=== PATIENT | male | born 1950 | race Two or more races ===

== ENCOUNTER 2019-02-18 08:30 | Inpatient (IN) | payer MEDICARE, MEDICAID ==
[~2019-02-18] VITALS: Ht 157.5 cm; Wt 66.2 kg
[2019-02-18] MEDS ORDERED: METHYLPREDNISOLONE SOD SUCC 125 MG/2 ML VIAL IV STA (08:45)
[2019-02-18] MEDS: ALBUTEROL (0.083%) 2.5MG/3ML NEB HHN SCH ×3 (08:45→09:45)
[2019-02-18] MEDS ORDERED: MAGNESIUM 2 G PREMIX 50 ML IV ONE (08:45)
[2019-02-18] MEDS ORDERED: IPRATROPIUM BROMIDE (0.02%) 0.5MG/2.5ML NEB HHN STA (08:45)
[2019-02-18 09:09] LABS: CHLORIDE 96 mEq/L (98-107)
[2019-02-18 09:10] LABS: BASOPHILS % 0.3 % (0.0-2.0); EOSINOPHILS % 0.4 % (0.0-5.0); HEMATOCRIT. 35.5 % (42.0-52.0); HEMOGLOBIN. 11.5 g/dL (14.0-18.0); LYMPHOCYTES % 8.5 % (20.0-50.0); MEAN CORPUSCULAR HEMOGLOBIN 28.2 pg (28.0-32.0); MEAN CORPUSCULAR VOLUME 87.3 fL (80.0-94.0); MEAN PLATELET VOLUME 7.7 fl (7.4-10.4); MONOCYTES % 9.2 % (2.0-8.0); NEUTROPHILS % 81.6 % (40.0-76.0); PLATELET 464 x1000/uL (130-400); RED BLOOD CELL COUNT 4.07 mill/uL (4.7-6.1); RED CELL DISTRIBUTION WIDTH 16.6 % (11.6-14.6)
[2019-02-18 09:26] LABS: BG BASE EXCESS 1.2 mmol/L (-2.0-2.0); BG BILEVEL POS AIRWAY PRESSURE 15/5; BG CARBOXYHEMOGLOBIN 0.6 % (0.5-1.5); BG DEOXYHEMOGLOBIN 0.5 % (0.0-5.0); BG FRACTION INSPIRED OXYGEN 100; BG HCO3 ACT 27.5 mmol/L (22.0-26.0); BG METHEMOGLOBIN 0.1 % (0.0-1.5); BG OXYGEN SATURATION 99.5 % (92.0-98.5); BG OXYHEMOGLOBIN 98.8 % (94.0-97.0); BG PH 7.349 (7.350-7.450); BG SAMPLE SITE LEFT RADIAL; BG TOTAL HEMOGLOBIN 12.1 g/dL (12.0-18.0); BG VENT MODE MASK - BIPAP; BG VENT RATE 16 set
[2019-02-18 09:59] LABS: CLARITY URINE TURBID (CLEAR); COLOR URINE YELLOW (YELLOW); KETONES URINE NEGATIVE (NEGATIVE); LEUKOCYTE ESTERASE URINE 3+ (NEGATIVE); NITRITE URINE NEGATIVE (NEGATIVE); OCCULT BLOOD URINE 2+ (NEGATIVE); PROTEIN URINE 2+ (NEGATIVE); SPECIFIC GRAVITY URINE 1.017 (1.005-1.030); UROBILINOGEN URINE 0.2 E.U./dL (0.2-1.0)
[2019-02-18] MEDS ORDERED: PIPERACILLIN/TAZ 3.375G PREMIX 50 ML IV ONE (10:15)
[2019-02-18] MEDS ORDERED: SODIUM CHLORIDE 0.9% 1000ML BAG (SEPSIS BOLUS) IV ONE (10:15)
[2019-02-18] MEDS ORDERED: VANCOMYCIN 1 G PREMIX 200 ML IV ONE (10:15)
[2019-02-18] MEDS ORDERED: CLONIDINE 0.1MG TABLET PO PRN (11:45)
[2019-02-18] MEDS ORDERED: IPRATROPIUM/ALBUTEROL 0.5-3(2.5)MG/3ML NEB INH SCH (11:45)
[2019-02-18] MEDS ORDERED: ONDANSETRON HCL 4MG/2ML INJ IV PRN (11:45)
[2019-02-18 14:10] VITALS: BP 112/67
[2019-02-18] MEDS ORDERED: ALBUMIN HUMAN 25GM/500ML (5%) IV PRN (14:30)
[2019-02-18 16:22] VITALS: BP 122/64
[2019-02-18] MEDS: DEXT 5%/0.45% NACL 1000ML 1,000 ML IV SCH (17:40)
[2019-02-18 18:14] VITALS: BP 102/58
[2019-02-18] MEDS ORDERED: FLUCONAZOLE 400MG/200ML BAG 200 ML IV NR (18:30)
[2019-02-18] MEDS: PIPERACILLIN/TAZ 2.25G PREMIX 50 ML IV SCH ×2 (18:41→23:51)
[2019-02-18] MEDS ORDERED: DEXTROSE 50% WATER 50ML SYRINGE IV PRN (19:45)
[2019-02-18 20:00] VITALS: BP 103/62
[2019-02-18] MEDS: BLOOD SUGAR DIAGNOSTIC STRIP TEST SCH (20:56)
[2019-02-18] MEDS ORDERED: LEVETIRACETAM 500MG/5ML CUP PO SCH (21:00)
[2019-02-18] MEDS: INSULIN LISPRO 100 UNITS/ML SUBCUT SCH (21:00)
[2019-02-18] MEDS: IPRATROPIUM BROMIDE (0.02%) 0.5MG/2.5ML NEB HHN SCH (21:44)
[2019-02-18 22:00] VITALS: BP 126/72
[2019-02-19] VITALS (13 sets, daily range): BP systolic 85–141; BP diastolic 51–78
[2019-02-19] MEDS: IPRATROPIUM BROMIDE (0.02%) 0.5MG/2.5ML NEB HHN SCH ×6 (03:10→20:33)
[2019-02-19] MEDS: DEXT 5%/0.45% NACL 1000ML 1,000 ML IV SCH ×2 (05:06→19:46)
[2019-02-19] MEDS: PIPERACILLIN/TAZ 2.25G PREMIX 50 ML IV SCH ×3 (05:06→18:51)
[2019-02-19] MEDS ORDERED: DIATR MEGLU/DIATRIZOATE SOLN 30ML PO SCH ×2 (06:45→17:00)
[2019-02-19] MEDS ORDERED: LIDOCAINE HCL/PF 1% 2ML VIAL ONE (07:00)
[2019-02-19] MEDS: BLOOD SUGAR DIAGNOSTIC STRIP TEST SCH ×4 (07:30→21:00)
[2019-02-19 07:46] LABS: BG BASE EXCESS -0.7 mmol/L (-2.0-2.0); BG BILEVEL POS AIRWAY PRESSURE 15/5; BG CARBOXYHEMOGLOBIN 0.2 % (0.5-1.5); BG DEOXYHEMOGLOBIN 0.8 % (0.0-5.0); BG HCO3 ACT 25.5 mmol/L (22.0-26.0); BG METHEMOGLOBIN 0.3 % (0.0-1.5); BG OXYGEN SATURATION 99.2 % (92.0-98.5); BG OXYHEMOGLOBIN 98.7 % (94.0-97.0); BG PCO2 49.4 mmHg (35.0-45.0); BG PO2 244.2 mmHg (75.0-100.0); BG SAMPLE SITE RIGHT RADIAL; BG TOTAL HEMOGLOBIN 9.6 g/dL (12.0-18.0); BG VENT MODE MASK - BIPAP; BG VENT RATE 16 set
[2019-02-19] MEDS: INSULIN LISPRO 100 UNITS/ML SUBCUT SCH ×4 (08:00→21:00)
[2019-02-19 09:06] LABS: HEMATOCRIT. 25.5 % (42.0-52.0); HEMOGLOBIN. 8.5 g/dL (14.0-18.0); MEAN CORPUSCULAR HEMOGLOBIN 28.9 pg (28.0-32.0); MEAN CORPUSCULAR VOLUME 86.4 fL (80.0-94.0); MEAN PLATELET VOLUME 7.8 fl (7.4-10.4); PLATELET 286 x1000/uL (130-400); RED BLOOD CELL COUNT 2.95 mill/uL (4.7-6.1); RED CELL DISTRIBUTION WIDTH 16.6 % (11.6-14.6)
[2019-02-19 10:04] LABS: PLATELET ESTIMATE NORMAL
[2019-02-19] MEDS ORDERED: LEVETIRACETAM 500 MG in SODIUM CHLORIDE 0.9% 100 ML IV SCH (11:13)
[2019-02-19 11:45] LABS: CHLORIDE 100 mEq/L (98-107)
[2019-02-19 11:52] LABS: LDL CHOLESTEROL 50 mg/dL (5-100)
[2019-02-19 11:53] LABS: HDL CHOLESTEROL 44 mg/dL (40-59)
[2019-02-19] MEDS: FLUCONAZOLE 200 MG/100ML BAG 100 ML IV SCH (14:11)
[2019-02-19] MEDS ORDERED: LORAZEPAM 2MG/ML CPJ IV PRN (16:45)
[2019-02-19] MEDS: VANCOMYCIN 500 MG PREMIX 100 ML IV SCH (18:51)
[2019-02-19] MEDS ORDERED: TOTAL PARENTERAL NUTRITION IV SCH (21:00)
[2019-02-19] MEDS ORDERED: IOHEXOL-300 100 ML BOTTLE ONE (21:59)
[2019-02-19] MEDS: LEVETIRACETAM 500 MG in SODIUM CHLORIDE 0.9% 100 ML IV SCH (22:20)
[2019-02-20] VITALS (12 sets, daily range): BP systolic 100–147; BP diastolic 52–86
[2019-02-20] MEDS: IPRATROPIUM BROMIDE (0.02%) 0.5MG/2.5ML NEB HHN SCH ×6 (00:40→20:32)
[2019-02-20] MEDS: VANCOMYCIN 500 MG PREMIX 100 ML IV SCH (00:53)
[2019-02-20] MEDS: PIPERACILLIN/TAZ 2.25G PREMIX 50 ML IV SCH ×3 (00:54→13:27)
[2019-02-20] MEDS: BLOOD SUGAR DIAGNOSTIC STRIP TEST SCH ×4 (07:00→20:29)
[2019-02-20] MEDS: INSULIN LISPRO 100 UNITS/ML SUBCUT SCH ×4 (07:00→20:40)
[2019-02-20 07:30] LABS: BASOPHILS % 0.4 % (0.0-2.0); EOSINOPHILS % 2.1 % (0.0-5.0); HEMATOCRIT. 26.8 % (42.0-52.0); HEMOGLOBIN. 9.1 g/dL (14.0-18.0); LYMPHOCYTES % 9.5 % (20.0-50.0); MEAN CORPUSCULAR HEMOGLOBIN 29.6 pg (28.0-32.0); MEAN CORPUSCULAR VOLUME 87.6 fL (80.0-94.0); MEAN PLATELET VOLUME 7.6 fl (7.4-10.4); MONOCYTES % 11.6 % (2.0-8.0); NEUTROPHILS % 76.4 % (40.0-76.0); PLATELET 311 x1000/uL (130-400); RED BLOOD CELL COUNT 3.07 mill/uL (4.7-6.1); RED CELL DISTRIBUTION WIDTH 16.3 % (11.6-14.6)
[2019-02-20 07:37] LABS: CHLORIDE 101 mEq/L (98-107)
[2019-02-20] MEDS: LEVETIRACETAM 500 MG in SODIUM CHLORIDE 0.9% 100 ML IV SCH ×2 (10:21→20:29)
[2019-02-20] MEDS: HYDROMORPHONE HCL/PF 2MG/ML CPJ IV PRN ×2 (10:24→18:56)
[2019-02-20] MEDS: ACETYLCYSTEINE 100MG/ML 10% VIAL 4ML INH SCH (15:40)
[2019-02-20] MEDS: FLUCONAZOLE 200 MG/100ML BAG 100 ML IV SCH (17:32)
[2019-02-20] MEDS: VANCOMYCIN 750 MG PREMIX 150 ML IV SCH (17:33)
[2019-02-20] MEDS ORDERED: PIPERACILLIN/TAZ 3.375G PREMIX 50 ML IV SCH (18:00)
[2019-02-20] MEDS: PIPERACILLIN/TAZ 3.375G PREMIX 50 ML IV SCH ×2 (18:57→23:26)
[2019-02-20] MEDS ORDERED: TOTAL PARENTERAL NUTRITION IV SCH (21:00)
[2019-02-20] MEDS: ACETAMINOPHEN 650MG SUPP PR PRN (21:25)
[2019-02-21] VITALS (10 sets, daily range): BP systolic 100–142; BP diastolic 55–77
[2019-02-21] MEDS: IPRATROPIUM BROMIDE (0.02%) 0.5MG/2.5ML NEB HHN SCH ×7 (00:16→23:52)
[2019-02-21] MEDS: ACETYLCYSTEINE 100MG/ML 10% VIAL 4ML INH SCH ×4 (00:17→23:51)
[2019-02-21] MEDS: PIPERACILLIN/TAZ 3.375G PREMIX 50 ML IV SCH ×4 (06:15→23:50)
[2019-02-21 06:29] LABS: HEMATOCRIT. 25.6 % (42.0-52.0); HEMOGLOBIN. 8.7 g/dL (14.0-18.0); MEAN CORPUSCULAR HEMOGLOBIN 29.1 pg (28.0-32.0); MEAN CORPUSCULAR VOLUME 85.8 fL (80.0-94.0); MEAN PLATELET VOLUME 7.3 fl (7.4-10.4); PLATELET 316 x1000/uL (130-400); RED BLOOD CELL COUNT 2.98 mill/uL (4.7-6.1); RED CELL DISTRIBUTION WIDTH 16.2 % (11.6-14.6)
[2019-02-21] MEDS: BLOOD SUGAR DIAGNOSTIC STRIP TEST SCH ×4 (07:30→21:00)
[2019-02-21 07:38] LABS: CHLORIDE 99 mEq/L (98-107)
[2019-02-21 07:45] LABS: PHOSPHORUS 1.8 mg/dL (2.5-4.9)
[2019-02-21] MEDS: INSULIN LISPRO 100 UNITS/ML SUBCUT SCH ×4 (07:59→21:00)
[2019-02-21] MEDS: LEVETIRACETAM 500 MG in SODIUM CHLORIDE 0.9% 100 ML IV SCH ×2 (09:40→21:55)
[2019-02-21] MEDS: VANCOMYCIN 750 MG PREMIX 150 ML IV SCH (11:29)
[2019-02-21 14:12] LABS: PLATELET ESTIMATE NORMAL
[2019-02-21] MEDS: FLUCONAZOLE 200 MG/100ML BAG 100 ML IV SCH (14:28)
[2019-02-21] MEDS ORDERED: SODIUM PHOS,M-BASIC-D-BASIC 15 MM in DEXT 5% WATER 245 ML IV NR (18:00)
[2019-02-21] MEDS ORDERED: TOTAL PARENTERAL NUTRITION IV SCH (21:00)
[2019-02-22] VITALS (11 sets, daily range): BP systolic 99–161; BP diastolic 62–81
[2019-02-22] MEDS: IPRATROPIUM BROMIDE (0.02%) 0.5MG/2.5ML NEB HHN SCH ×5 (04:19→20:17)
[2019-02-22] MEDS: PIPERACILLIN/TAZ 3.375G PREMIX 50 ML IV SCH ×3 (05:15→18:02)
[2019-02-22] MEDS: VANCOMYCIN 750 MG PREMIX 150 ML IV SCH (05:42)
[2019-02-22] MEDS: BLOOD SUGAR DIAGNOSTIC STRIP TEST SCH ×4 (07:30→21:00)
[2019-02-22] MEDS: INSULIN LISPRO 100 UNITS/ML SUBCUT SCH ×4 (08:00→21:00)
[2019-02-22 08:05] LABS: BASOPHILS % 1.1 % (0.0-2.0); EOSINOPHILS % 2.4 % (0.0-5.0); HEMATOCRIT. 28.6 % (42.0-52.0); HEMOGLOBIN. 9.3 g/dL (14.0-18.0); LYMPHOCYTES % 10.6 % (20.0-50.0); MEAN CORPUSCULAR HEMOGLOBIN 28.5 pg (28.0-32.0); MEAN CORPUSCULAR VOLUME 87.3 fL (80.0-94.0); MEAN PLATELET VOLUME 8.3 fl (7.4-10.4); NEUTROPHILS % 74.9 % (40.0-76.0); PLATELET 252 x1000/uL (130-400); RED BLOOD CELL COUNT 3.27 mill/uL (4.7-6.1); RED CELL DISTRIBUTION WIDTH 16.3 % (11.6-14.6)
[2019-02-22 08:11] LABS: CHLORIDE 96 mEq/L (98-107)
[2019-02-22 08:16] LABS: PHOSPHORUS 2.7 mg/dL (2.5-4.9)
[2019-02-22] MEDS: LEVETIRACETAM 500 MG in SODIUM CHLORIDE 0.9% 100 ML IV SCH ×2 (08:52→21:45)
[2019-02-22] MEDS: ACETYLCYSTEINE 100MG/ML 10% VIAL 4ML INH SCH ×2 (09:53→16:08)
[2019-02-22] MEDS: FLUCONAZOLE 200 MG/100ML BAG 100 ML IV SCH (15:02)
[2019-02-22 17:10] LABS: BG BASE EXCESS 7.2 mmol/L (-2.0-2.0); BG CARBOXYHEMOGLOBIN 0.3 % (0.5-1.5); BG DEOXYHEMOGLOBIN 7.4 % (0.0-5.0); BG FRACTION INSPIRED OXYGEN 28; BG HCO3 ACT 33.3 mmol/L (22.0-26.0); BG METHEMOGLOBIN 0.4 % (0.0-1.5); BG OXYGEN SATURATION 92.5 % (92.0-98.5); BG OXYHEMOGLOBIN 91.9 % (94.0-97.0); BG PCO2 55.2 mmHg (35.0-45.0); BG PH 7.398 (7.350-7.450); BG PO2 66.4 mmHg (75.0-100.0); BG SAMPLE SITE RIGHT BRACHIAL; BG VENT MODE NASAL CANNULA
[2019-02-22] MEDS ORDERED: SODIUM CHLORIDE 10% FOR INH 15ML VIAL NEB INH SCH (18:00)
[2019-02-22] MEDS ORDERED: TOTAL PARENTERAL NUTRITION IV SCH (21:00)
[2019-02-22] MEDS: FAT EMULSIONS 500 ML IV SCH (21:44)
[2019-02-22] MEDS: HYDROMORPHONE HCL/PF 2MG/ML CPJ IV PRN (23:31)
[2019-02-23] VITALS (44 sets, daily range): BP systolic 79–135; BP diastolic 48–93
[2019-02-23] MEDS: ACETYLCYSTEINE 100MG/ML 10% VIAL 4ML INH SCH ×3 (00:22→16:25)
[2019-02-23] MEDS: IPRATROPIUM BROMIDE (0.02%) 0.5MG/2.5ML NEB HHN SCH ×5 (00:23→20:08)
[2019-02-23] MEDS: PIPERACILLIN/TAZ 3.375G PREMIX 50 ML IV SCH ×5 (00:53→23:38)
[2019-02-23] MEDS: VANCOMYCIN 750 MG PREMIX 150 ML IV SCH ×2 (00:54→21:55)
[2019-02-23 07:03] LABS: BASOPHILS % 0.3 % (0.0-2.0); EOSINOPHILS % 2.5 % (0.0-5.0); HEMATOCRIT. 24.8 % (42.0-52.0); HEMOGLOBIN. 8.4 g/dL (14.0-18.0); LYMPHOCYTES % 9.6 % (20.0-50.0); MEAN CORPUSCULAR HEMOGLOBIN 29.2 pg (28.0-32.0); MEAN CORPUSCULAR VOLUME 86.1 fL (80.0-94.0); MEAN PLATELET VOLUME 7.4 fl (7.4-10.4); MONOCYTES % 11.6 % (2.0-8.0); PLATELET 340 x1000/uL (130-400); RED BLOOD CELL COUNT 2.88 mill/uL (4.7-6.1); RED CELL DISTRIBUTION WIDTH 16.4 % (11.6-14.6)
[2019-02-23] MEDS: INSULIN LISPRO 100 UNITS/ML SUBCUT SCH ×4 (08:00→21:05)
[2019-02-23 08:17] LABS: PHOSPHORUS 1.9 mg/dL (2.5-4.9)
[2019-02-23] MEDS: BLOOD SUGAR DIAGNOSTIC STRIP TEST SCH ×4 (08:21→21:04)
[2019-02-23] MEDS ORDERED: POTASSIUM PHOS,M-BASIC-D-BASIC 20 MMOL in DEXT 5% WATER 243.3333 ML IV ONE (09:30)
[2019-02-23] MEDS: LEVETIRACETAM 500 MG in SODIUM CHLORIDE 0.9% 100 ML IV SCH ×2 (09:39→21:02)
[2019-02-23] MEDS: FLUCONAZOLE 200 MG/100ML BAG 100 ML IV SCH (14:02)
[2019-02-23 14:48] LABS: BG BASE EXCESS 4.5 mmol/L (-2.0-2.0); BG CARBOXYHEMOGLOBIN 0.3 % (0.5-1.5); BG METHEMOGLOBIN 0.3 % (0.0-1.5); BG OXYHEMOGLOBIN 93.4 % (94.0-97.0); BG PCO2 58.3 mmHg (35.0-45.0); BG PH 7.344 (7.350-7.450); BG PO2 72.9 mmHg (75.0-100.0); BG SAMPLE SITE RIGHT BRACHIAL; BG TOTAL HEMOGLOBIN 8.9 g/dL (12.0-18.0); BG VENT MODE NASAL CANNULA
[2019-02-23] MEDS ORDERED: VECURONIUM BROMIDE 10 MG/VIAL IV ONE (16:00)
[2019-02-23] MEDS ORDERED: ETOMIDATE 2MG/ML 10ML VIAL IV ONE (16:00)
[2019-02-23] MEDS ORDERED: SODIUM CHLORIDE 0.9% 10ML VIAL ONE (16:00)
[2019-02-23] MEDS ORDERED: NOREPINEPHRINE 8 MG in DEXT 5% WATER 242 ML IV PRN (16:00)
[2019-02-23] MEDS ORDERED: PROPOFOL 10MG/ML 100ML 100 ML IV PRN (16:00)
[2019-02-23] MEDS ORDERED: SODIUM CHLORIDE 0.9% 500 ML IV NR (16:00)
[2019-02-23 17:18] LABS: BG BASE EXCESS 5.3 mmol/L (-2.0-2.0); BG CARBOXYHEMOGLOBIN 0.5 % (0.5-1.5); BG FRACTION INSPIRED OXYGEN 60; BG OXYHEMOGLOBIN 94.5 % (94.0-97.0); BG PCO2 60.5 mmHg (35.0-45.0); BG PH 7.341 (7.350-7.450); BG SAMPLE SITE RIGHT RADIAL; BG TIDAL VOLUME(mL) 500 mL; BG TOTAL HEMOGLOBIN 8.7 g/dL (12.0-18.0); BG VENT MODE VENT - A/C; BG VENT RATE 14 set
[2019-02-23] MEDS ORDERED: TOTAL PARENTERAL NUTRITION IV SCH (21:00)
[2019-02-23] MEDS: ACETAMINOPHEN 650MG SUPP PR PRN (23:35)
[2019-02-24] VITALS (90 sets, daily range): BP systolic 70–147; BP diastolic 21–88
[2019-02-24] MEDS: NOREPINEPHRINE 8 MG in DEXT 5% WATER 242 ML IV PRN ×2 (00:35→16:33)
[2019-02-24] MEDS: IPRATROPIUM BROMIDE (0.02%) 0.5MG/2.5ML NEB HHN SCH ×6 (04:21→23:40)
[2019-02-24] MEDS: BLOOD SUGAR DIAGNOSTIC STRIP TEST SCH ×4 (05:37→22:07)
[2019-02-24 05:55] LABS: BASOPHILS % 0.4 % (0.0-2.0); EOSINOPHILS % 3.5 % (0.0-5.0); HEMATOCRIT. 23.2 % (42.0-52.0); LYMPHOCYTES % 11.2 % (20.0-50.0); MEAN CORPUSCULAR HEMOGLOBIN 29.1 pg (28.0-32.0); MEAN CORPUSCULAR VOLUME 84.9 fL (80.0-94.0); MEAN PLATELET VOLUME 7.4 fl (7.4-10.4); MONOCYTES % 13.2 % (2.0-8.0); NEUTROPHILS % 71.7 % (40.0-76.0); PLATELET 330 x1000/uL (130-400); RED BLOOD CELL COUNT 2.73 mill/uL (4.7-6.1); RED CELL DISTRIBUTION WIDTH 16.6 % (11.6-14.6)
[2019-02-24 06:07] LABS: PHOSPHORUS 2.6 mg/dL (2.5-4.9)
[2019-02-24] MEDS: PIPERACILLIN/TAZ 3.375G PREMIX 50 ML IV SCH ×4 (06:07→23:38)
[2019-02-24] MEDS: INSULIN LISPRO 100 UNITS/ML SUBCUT SCH ×4 (06:25→22:07)
[2019-02-24 08:08] LABS: BG BASE EXCESS 7.8 mmol/L (-2.0-2.0); BG CARBOXYHEMOGLOBIN 0.1 % (0.5-1.5); BG FRACTION INSPIRED OXYGEN 60; BG HCO3 ACT 33.4 mmol/L (22.0-26.0); BG METHEMOGLOBIN 0.3 % (0.0-1.5); BG OXYHEMOGLOBIN 98.6 % (94.0-97.0); BG PCO2 53.4 mmHg (35.0-45.0); BG PH 7.414 (7.350-7.450); BG PO2 175.1 mmHg (75.0-100.0); BG SAMPLE SITE RIGHT BRACHIAL; BG TIDAL VOLUME(mL) 500 mL; BG TOTAL HEMOGLOBIN 9.1 g/dL (12.0-18.0); BG VENT MODE VENT - A/C; BG VENT RATE 16 set
[2019-02-24] MEDS: ACETYLCYSTEINE 100MG/ML 10% VIAL 4ML INH SCH ×4 (08:22→23:41)
[2019-02-24] MEDS ORDERED: PROPOFOL 10MG/ML 100ML 100 ML IV PRN (08:30)
[2019-02-24] MEDS: LEVETIRACETAM 500 MG in SODIUM CHLORIDE 0.9% 100 ML IV SCH ×2 (09:30→21:32)
[2019-02-24] MEDS: FAMOTIDINE 20MG/2ML VIAL IV SCH (09:30)
[2019-02-24] MEDS: IPRATROPIUM/ALBUTEROL 0.5-3(2.5)MG/3ML NEB HHN PRN (12:34)
[2019-02-24] MEDS ORDERED: FLUCONAZOLE 200 MG/100ML BAG 100 ML IV SCH (14:00)
[2019-02-24] MEDS ORDERED: TOTAL PARENTERAL NUTRITION IV SCH (21:00)
[2019-02-24] MEDS: EPOETIN ALFA 10000UNITS/ML VIAL SUBCUT SCH (21:32)
[2019-02-24] MEDS: ACETAMINOPHEN 650MG SUPP PR PRN (22:04)
[2019-02-24] MEDS: VANCOMYCIN 750 MG PREMIX 150 ML IV SCH (22:05)
[2019-02-25] VITALS (92 sets, daily range): BP systolic 85–140; BP diastolic 30–86
[2019-02-25] MEDS: IPRATROPIUM/ALBUTEROL 0.5-3(2.5)MG/3ML NEB HHN PRN (02:51)
[2019-02-25] MEDS: PIPERACILLIN/TAZ 3.375G PREMIX 50 ML IV SCH ×2 (05:03→12:32)
[2019-02-25 05:24] LABS: CHLORIDE 94 mEq/L (98-107)
[2019-02-25 05:30] LABS: BASOPHILS % 0.7 % (0.0-2.0); EOSINOPHILS % 3.6 % (0.0-5.0); HEMATOCRIT. 27.4 % (42.0-52.0); HEMOGLOBIN. 9.2 g/dL (14.0-18.0); LYMPHOCYTES % 14.4 % (20.0-50.0); MEAN CORPUSCULAR HEMOGLOBIN 29.1 pg (28.0-32.0); MEAN PLATELET VOLUME 7.7 fl (7.4-10.4); MONOCYTES % 13.5 % (2.0-8.0); NEUTROPHILS % 67.8 % (40.0-76.0); PLATELET 345 x1000/uL (130-400); RED BLOOD CELL COUNT 3.18 mill/uL (4.7-6.1); RED CELL DISTRIBUTION WIDTH 16.6 % (11.6-14.6)
[2019-02-25] MEDS: BLOOD SUGAR DIAGNOSTIC STRIP TEST SCH ×3 (07:00→17:53)
[2019-02-25] MEDS: INSULIN LISPRO 100 UNITS/ML SUBCUT SCH ×3 (07:00→17:54)
[2019-02-25 07:49] LABS: BG BASE EXCESS 7.1 mmol/L (-2.0-2.0); BG CARBOXYHEMOGLOBIN 0.2 % (0.5-1.5); BG DEOXYHEMOGLOBIN 2.6 % (0.0-5.0); BG FRACTION INSPIRED OXYGEN 40; BG HCO3 ACT 32.1 mmol/L (22.0-26.0); BG METHEMOGLOBIN 0.1 % (0.0-1.5); BG OXYGEN SATURATION 97.4 % (92.0-98.5); BG OXYHEMOGLOBIN 97.1 % (94.0-97.0); BG PCO2 48.6 mmHg (35.0-45.0); BG PH 7.438 (7.350-7.450); BG PO2 98.8 mmHg (75.0-100.0); BG SAMPLE SITE RIGHT BRACHIAL; BG TIDAL VOLUME(mL) 500 mL; BG TOTAL HEMOGLOBIN 8.5 g/dL (12.0-18.0); BG VENT MODE VENT - A/C; BG VENT RATE 16 set
[2019-02-25] MEDS: LEVETIRACETAM 500 MG in SODIUM CHLORIDE 0.9% 100 ML IV SCH ×2 (08:56→20:38)
[2019-02-25] MEDS: FAMOTIDINE 20MG/2ML VIAL IV SCH (08:56)
[2019-02-25] MEDS: NOREPINEPHRINE 8 MG in DEXT 5% WATER 242 ML IV PRN (08:57)
[2019-02-25] MEDS: IPRATROPIUM BROMIDE (0.02%) 0.5MG/2.5ML NEB HHN SCH ×5 (09:03→23:49)
[2019-02-25] MEDS: ACETYLCYSTEINE 100MG/ML 10% VIAL 4ML INH SCH ×2 (09:03→16:20)
[2019-02-25] MEDS ORDERED: FLUCONAZOLE 100MG TABLET PO ONE (14:15)
[2019-02-25] MEDS: FLUCONAZOLE 200 MG/100ML BAG 100 ML IV SCH (15:35)
[2019-02-25] MEDS: AMPICILLIN SOD/SULBACTAM NA 3 G in SODIUM CHLORIDE 0.9% 100 ML IV SCH ×2 (16:28→21:32)
[2019-02-25] MEDS: COLISTIMETHATE SODIUM 150MG/VIAL INH SCH (17:21)
[2019-02-25] MEDS: PROPOFOL 10MG/ML 100ML 100 ML IV PRN (17:54)
[2019-02-25] MEDS: FAT EMULSIONS 500 ML IV SCH (20:38)
[2019-02-25] MEDS: TOTAL PARENTERAL NUTRITION 1,500 ML IV SCH (20:40)
[2019-02-26] VITALS (97 sets, daily range): BP systolic 84–135; BP diastolic 26–103
[2019-02-26] MEDS: COLISTIMETHATE SODIUM 150MG/VIAL INH SCH ×3 (00:02→23:55)
[2019-02-26] MEDS: BLOOD SUGAR DIAGNOSTIC STRIP TEST SCH ×5 (00:08→23:57)
[2019-02-26] MEDS: IPRATROPIUM BROMIDE (0.02%) 0.5MG/2.5ML NEB HHN SCH ×6 (03:59→23:55)
[2019-02-26 05:04] LABS: HEMOGLOBIN. 8.6 g/dL (14.0-18.0); MEAN CORPUSCULAR HEMOGLOBIN 30.8 pg (28.0-32.0); MEAN CORPUSCULAR VOLUME 86.2 fL (80.0-94.0); MEAN PLATELET VOLUME 7.9 fl (7.4-10.4); PLATELET 343 x1000/uL (130-400); RED BLOOD CELL COUNT 2.78 mill/uL (4.7-6.1); RED CELL DISTRIBUTION WIDTH 16.9 % (11.6-14.6)
[2019-02-26 05:26] LABS: PHOSPHORUS 3.6 mg/dL (2.5-4.9)
[2019-02-26] MEDS: INSULIN LISPRO 100 UNITS/ML SUBCUT SCH ×5 (05:41→23:57)
[2019-02-26] MEDS: AMPICILLIN SOD/SULBACTAM NA 3 G in SODIUM CHLORIDE 0.9% 100 ML IV SCH ×3 (05:47→22:40)
[2019-02-26 08:32] LABS: BG BASE EXCESS 4.8 mmol/L (-2.0-2.0); BG CARBOXYHEMOGLOBIN 0.2 % (0.5-1.5); BG DEOXYHEMOGLOBIN 1.3 % (0.0-5.0); BG FRACTION INSPIRED OXYGEN 40; BG HCO3 ACT 29.5 mmol/L (22.0-26.0); BG METHEMOGLOBIN 0.2 % (0.0-1.5); BG OXYGEN SATURATION 98.7 % (92.0-98.5); BG OXYHEMOGLOBIN 98.3 % (94.0-97.0); BG PH 7.435 (7.350-7.450); BG PO2 132.4 mmHg (75.0-100.0); BG SAMPLE SITE RIGHT RADIAL; BG TIDAL VOLUME(mL) 500 mL; BG TOTAL HEMOGLOBIN 7.3 g/dL (12.0-18.0); BG VENT MODE VENT - A/C; BG VENT RATE 16 set
[2019-02-26] MEDS: FAMOTIDINE 20MG/2ML VIAL IV SCH (08:43)
[2019-02-26] MEDS: FLUCONAZOLE 200 MG/100ML BAG 100 ML IV SCH (08:43)
[2019-02-26] MEDS: LEVETIRACETAM 500 MG in SODIUM CHLORIDE 0.9% 100 ML IV SCH ×2 (08:43→21:33)
[2019-02-26] MEDS: PROPOFOL 10MG/ML 100ML 100 ML IV PRN (08:52)
[2019-02-26] MEDS ORDERED: LORAZEPAM 2MG/ML CPJ IV PRN (09:15)
[2019-02-26 10:13] LABS: PLATELET ESTIMATE NORMAL
[2019-02-26] MEDS: FENTANYL CITRATE/PF 500 MCG in SODIUM CHLORIDE 0.9% 40 ML IV PRN ×2 (12:31→21:37)
[2019-02-26] MEDS: ACETYLCYSTEINE 100MG/ML 10% VIAL 4ML INH SCH (15:51)
[2019-02-26] MEDS: EPOETIN ALFA 10000UNITS/ML VIAL SUBCUT SCH (21:34)
[2019-02-26] MEDS: TOTAL PARENTERAL NUTRITION 1,500 ML IV SCH (21:34)
[2019-02-27] VITALS (93 sets, daily range): BP systolic 81–131; BP diastolic 48–82
[2019-02-27] MEDS: IPRATROPIUM BROMIDE (0.02%) 0.5MG/2.5ML NEB HHN SCH ×5 (03:41→20:28)
[2019-02-27] MEDS: AMPICILLIN SOD/SULBACTAM NA 3 G in SODIUM CHLORIDE 0.9% 100 ML IV SCH ×3 (05:39→21:18)
[2019-02-27] MEDS: ACETYLCYSTEINE 100MG/ML 10% VIAL 4ML INH SCH ×2 (06:00→15:45)
[2019-02-27] MEDS: INSULIN LISPRO 100 UNITS/ML SUBCUT SCH ×4 (06:03→23:28)
[2019-02-27] MEDS: BLOOD SUGAR DIAGNOSTIC STRIP TEST SCH ×4 (06:03→23:28)
[2019-02-27 06:04] LABS: BASOPHILS % 0.7 % (0.0-2.0); EOSINOPHILS % 3.3 % (0.0-5.0); HEMATOCRIT. 23.6 % (42.0-52.0); HEMOGLOBIN. 7.9 g/dL (14.0-18.0); LYMPHOCYTES % 12.4 % (20.0-50.0); MEAN CORPUSCULAR HEMOGLOBIN 28.7 pg (28.0-32.0); MEAN CORPUSCULAR VOLUME 85.6 fL (80.0-94.0); MEAN PLATELET VOLUME 8.4 fl (7.4-10.4); MONOCYTES % 9.8 % (2.0-8.0); NEUTROPHILS % 73.8 % (40.0-76.0); PLATELET 310 x1000/uL (130-400); RED BLOOD CELL COUNT 2.76 mill/uL (4.7-6.1); RED CELL DISTRIBUTION WIDTH 16.7 % (11.6-14.6)
[2019-02-27 06:10] LABS: CHLORIDE 99 mEq/L (98-107)
[2019-02-27] MEDS: ACETAMINOPHEN 650MG SUPP PR PRN (06:20)
[2019-02-27 07:20] LABS: BG CARBOXYHEMOGLOBIN 0.2 % (0.5-1.5); BG DEOXYHEMOGLOBIN 3.6 % (0.0-5.0); BG HCO3 ACT 29.7 mmol/L (22.0-26.0); BG METHEMOGLOBIN 0.3 % (0.0-1.5); BG OXYGEN SATURATION 96.4 % (92.0-98.5); BG OXYHEMOGLOBIN 95.9 % (94.0-97.0); BG PH 7.438 (7.350-7.450); BG SAMPLE SITE RIGHT BRACHIAL; BG TIDAL VOLUME(mL) 500 mL; BG TOTAL HEMOGLOBIN 9.4 g/dL (12.0-18.0); BG VENT MODE VENT - A/C; BG VENT RATE 16 set
[2019-02-27] MEDS: FAMOTIDINE 20MG/2ML VIAL IV SCH (08:48)
[2019-02-27] MEDS: FLUCONAZOLE 200 MG/100ML BAG 100 ML IV SCH (08:48)
[2019-02-27] MEDS: LEVETIRACETAM 500 MG in SODIUM CHLORIDE 0.9% 100 ML IV SCH ×2 (08:48→20:25)
[2019-02-27] MEDS: COLISTIMETHATE SODIUM 150MG/VIAL INH SCH ×2 (08:53→20:30)
[2019-02-27] MEDS: FENTANYL CITRATE/PF 500 MCG in SODIUM CHLORIDE 0.9% 40 ML IV PRN (09:03)
[2019-02-27] MEDS ORDERED: TOTAL PARENTERAL NUTRITION 1,500 ML IV SCH (21:00)
[2019-02-28] VITALS (85 sets, daily range): BP systolic 50–145; BP diastolic 21–137
[2019-02-28] MEDS: IPRATROPIUM BROMIDE (0.02%) 0.5MG/2.5ML NEB HHN SCH ×6 (00:33→20:52)
[2019-02-28] MEDS: ACETYLCYSTEINE 100MG/ML 10% VIAL 4ML INH SCH ×3 (00:33→15:43)
[2019-02-28] MEDS: FENTANYL CITRATE/PF 500 MCG in SODIUM CHLORIDE 0.9% 40 ML IV PRN ×2 (02:16→13:27)
[2019-02-28] MEDS: BLOOD SUGAR DIAGNOSTIC STRIP TEST SCH ×4 (05:25→23:24)
[2019-02-28] MEDS: INSULIN LISPRO 100 UNITS/ML SUBCUT SCH ×4 (05:26→23:24)
[2019-02-28 05:37] LABS: BASOPHILS % 0.6 % (0.0-2.0); HEMATOCRIT. 28.3 % (42.0-52.0); HEMOGLOBIN. 9.3 g/dL (14.0-18.0); LYMPHOCYTES % 7.9 % (20.0-50.0); MEAN CORPUSCULAR HEMOGLOBIN 28.3 pg (28.0-32.0); MEAN CORPUSCULAR VOLUME 85.9 fL (80.0-94.0); MEAN PLATELET VOLUME 8.7 fl (7.4-10.4); MONOCYTES % 9.1 % (2.0-8.0); NEUTROPHILS % 81.4 % (40.0-76.0); PLATELET 485 x1000/uL (130-400); RED CELL DISTRIBUTION WIDTH 16.4 % (11.6-14.6)
[2019-02-28] MEDS: AMPICILLIN SOD/SULBACTAM NA 3 G in SODIUM CHLORIDE 0.9% 100 ML IV SCH ×3 (06:25→21:20)
[2019-02-28] MEDS: COLISTIMETHATE SODIUM 150MG/VIAL INH SCH ×2 (07:27→20:58)
[2019-02-28 08:17] LABS: BG BASE EXCESS 2.1 mmol/L (-2.0-2.0); BG CARBOXYHEMOGLOBIN 0.1 % (0.5-1.5); BG DEOXYHEMOGLOBIN 3.2 % (0.0-5.0); BG FRACTION INSPIRED OXYGEN 35; BG HCO3 ACT 27.1 mmol/L (22.0-26.0); BG METHEMOGLOBIN 0.3 % (0.0-1.5); BG OXYGEN SATURATION 96.8 % (92.0-98.5); BG OXYHEMOGLOBIN 96.4 % (94.0-97.0); BG PCO2 43.8 mmHg (35.0-45.0); BG PH 7.409 (7.350-7.450); BG PO2 94.3 mmHg (75.0-100.0); BG SAMPLE SITE RIGHT BRACHIAL; BG TIDAL VOLUME(mL) 500 mL; BG TOTAL HEMOGLOBIN 10.1 g/dL (12.0-18.0); BG VENT MODE VENT - A/C; BG VENT RATE 16 set
[2019-02-28] MEDS: LEVETIRACETAM 500 MG in SODIUM CHLORIDE 0.9% 100 ML IV SCH ×2 (08:48→20:39)
[2019-02-28] MEDS: FAMOTIDINE 20MG/2ML VIAL IV SCH (08:48)
[2019-02-28] MEDS ORDERED: METOPROLOL TARTRATE 5MG/5ML VIAL IV PRN (09:00)
[2019-02-28] MEDS: FLUCONAZOLE 200 MG/100ML BAG 100 ML IV SCH (09:31)
[2019-02-28] MEDS ORDERED: SODIUM CHLORIDE 0.9% 250 ML IV ONE (13:45)
[2019-02-28] MEDS ORDERED: TOTAL PARENTERAL NUTRITION 1,500 ML IV SCH (21:00)
[2019-03-01] VITALS (75 sets, daily range): BP systolic 74–135; BP diastolic 36–82
[2019-03-01] MEDS: IPRATROPIUM BROMIDE (0.02%) 0.5MG/2.5ML NEB HHN SCH ×6 (00:15→20:25)
[2019-03-01] MEDS: ACETYLCYSTEINE 100MG/ML 10% VIAL 4ML INH SCH ×3 (00:16→15:06)
[2019-03-01] MEDS: FENTANYL CITRATE/PF 500 MCG in SODIUM CHLORIDE 0.9% 40 ML IV PRN ×4 (02:03→19:49)
[2019-03-01] MEDS: AMPICILLIN SOD/SULBACTAM NA 3 G in SODIUM CHLORIDE 0.9% 100 ML IV SCH (05:19)
[2019-03-01] MEDS: INSULIN LISPRO 100 UNITS/ML SUBCUT SCH ×4 (05:42→23:43)
[2019-03-01] MEDS: BLOOD SUGAR DIAGNOSTIC STRIP TEST SCH ×4 (05:44→23:43)
[2019-03-01 06:02] LABS: BASOPHILS % 0.6 % (0.0-2.0); HEMATOCRIT. 26.7 % (42.0-52.0); HEMOGLOBIN. 8.8 g/dL (14.0-18.0); LYMPHOCYTES % 7.5 % (20.0-50.0); MEAN CORPUSCULAR HEMOGLOBIN 28.4 pg (28.0-32.0); MEAN CORPUSCULAR VOLUME 86.4 fL (80.0-94.0); MEAN PLATELET VOLUME 8.8 fl (7.4-10.4); MONOCYTES % 10.8 % (2.0-8.0); NEUTROPHILS % 80.1 % (40.0-76.0); PLATELET 590 x1000/uL (130-400); RED BLOOD CELL COUNT 3.09 mill/uL (4.7-6.1); RED CELL DISTRIBUTION WIDTH 16.8 % (11.6-14.6)
[2019-03-01 06:37] LABS: PHOSPHORUS 3.9 mg/dL (2.5-4.9)
[2019-03-01 07:59] LABS: BG BASE EXCESS 0.5 mmol/L (-2.0-2.0); BG CARBOXYHEMOGLOBIN 0.2 % (0.5-1.5); BG DEOXYHEMOGLOBIN 3.7 % (0.0-5.0); BG FRACTION INSPIRED OXYGEN 35; BG HCO3 ACT 25.1 mmol/L (22.0-26.0); BG METHEMOGLOBIN 0.2 % (0.0-1.5); BG OXYGEN SATURATION 96.3 % (92.0-98.5); BG OXYHEMOGLOBIN 95.9 % (94.0-97.0); BG PCO2 40.3 mmHg (35.0-45.0); BG PH 7.412 (7.350-7.450); BG PO2 89.8 mmHg (75.0-100.0); BG SAMPLE SITE RIGHT BRACHIAL; BG TIDAL VOLUME(mL) 500 mL; BG TOTAL HEMOGLOBIN 8.4 g/dL (12.0-18.0); BG VENT MODE VENT - A/C; BG VENT RATE 16 set
[2019-03-01] MEDS: SODIUM CHLORIDE 3% FOR INH 4ML UD NEB INH SCH ×3 (08:00→20:24)
[2019-03-01] MEDS: COLISTIMETHATE SODIUM 150MG/VIAL INH SCH ×2 (08:01→20:45)
[2019-03-01] MEDS: LEVETIRACETAM 500 MG in SODIUM CHLORIDE 0.9% 100 ML IV SCH ×2 (10:01→21:06)
[2019-03-01] MEDS: FLUCONAZOLE 200 MG/100ML BAG 100 ML IV SCH (10:01)
[2019-03-01] MEDS: FAMOTIDINE 20MG/2ML VIAL IV SCH (10:01)
[2019-03-01] MEDS ORDERED: LORAZEPAM 2MG/ML CPJ IV PRN (11:15)
[2019-03-01] MEDS ORDERED: MORPHINE SULFATE 250 MG in DEXT 5% WATER 240 ML IV PRN (11:15)
[2019-03-01] MEDS ORDERED: ALBUMIN HUMAN 25GM/500ML (5%) IV PRN (14:00)
[2019-03-01] MEDS ORDERED: ALBUMIN HUMAN 25GM/500ML (5%) IV NR (14:00)
[2019-03-01] MEDS: MEROPENEM 1,000 MG in SODIUM CHLORIDE 0.9% 100 ML IV SCH (15:10)
[2019-03-01] MEDS: NOREPINEPHRINE 8 MG in DEXT 5% WATER 242 ML IV PRN (18:24)
[2019-03-01 20:08] LABS: BG BASE EXCESS -0.6 mmol/L (-2.0-2.0); BG CARBOXYHEMOGLOBIN 0.3 % (0.5-1.5); BG DEOXYHEMOGLOBIN 3.4 % (0.0-5.0); BG FRACTION INSPIRED OXYGEN 35; BG HCO3 ACT 25.1 mmol/L (22.0-26.0); BG METHEMOGLOBIN 0.1 % (0.0-1.5); BG OXYGEN SATURATION 96.6 % (92.0-98.5); BG OXYHEMOGLOBIN 96.2 % (94.0-97.0); BG PCO2 46.2 mmHg (35.0-45.0); BG PH 7.353 (7.350-7.450); BG PO2 93.9 mmHg (75.0-100.0); BG SAMPLE SITE RIGHT BRACHIAL; BG TIDAL VOLUME(mL) 500 mL; BG TOTAL HEMOGLOBIN 9.4 g/dL (12.0-18.0); BG VENT MODE VENT - A/C; BG VENT RATE 14 set
[2019-03-01] MEDS ORDERED: TOTAL PARENTERAL NUTRITION 1,500 ML IV SCH (21:00)
[2019-03-01] MEDS ORDERED: FAT EMULSIONS 500 ML IV SCH (21:00)
[2019-03-01] MEDS: QUETIAPINE FUMARATE 25MG TABLET NG SCH (21:06)
[2019-03-02] VITALS (92 sets, daily range): BP systolic 65–135; BP diastolic 29–82
[2019-03-02] MEDS: IPRATROPIUM BROMIDE (0.02%) 0.5MG/2.5ML NEB HHN SCH ×6 (00:14→20:23)
[2019-03-02] MEDS: ACETYLCYSTEINE 100MG/ML 10% VIAL 4ML INH SCH ×3 (00:15→16:59)
[2019-03-02] MEDS: NOREPINEPHRINE 8 MG in DEXT 5% WATER 242 ML IV PRN (02:16)
[2019-03-02] MEDS: MEROPENEM 1,000 MG in SODIUM CHLORIDE 0.9% 100 ML IV SCH ×2 (02:20→14:43)
[2019-03-02] MEDS: FENTANYL CITRATE/PF 500 MCG in SODIUM CHLORIDE 0.9% 40 ML IV PRN ×4 (02:30→22:24)
[2019-03-02 02:32] LABS: CLARITY URINE TURBID (CLEAR); COLOR URINE YELLOW (YELLOW); KETONES URINE TRACE (NEGATIVE); LEUKOCYTE ESTERASE URINE 3+ (NEGATIVE); NITRITE URINE NEGATIVE (NEGATIVE); OCCULT BLOOD URINE 1+ (NEGATIVE); PROTEIN URINE 1+ (NEGATIVE); UROBILINOGEN URINE 0.2 E.U./dL (0.2-1.0)
[2019-03-02] MEDS: INSULIN LISPRO 100 UNITS/ML SUBCUT SCH ×3 (05:09→18:00)
[2019-03-02] MEDS: BLOOD SUGAR DIAGNOSTIC STRIP TEST SCH ×3 (05:09→18:43)
[2019-03-02 05:51] LABS: HEMATOCRIT. 25.3 % (42.0-52.0); HEMOGLOBIN. 8.2 g/dL (14.0-18.0); MEAN CORPUSCULAR HEMOGLOBIN 28.1 pg (28.0-32.0); MEAN CORPUSCULAR VOLUME 86.4 fL (80.0-94.0); MEAN PLATELET VOLUME 8.6 fl (7.4-10.4); PLATELET 781 x1000/uL (130-400); RED BLOOD CELL COUNT 2.92 mill/uL (4.7-6.1); RED CELL DISTRIBUTION WIDTH 17.2 % (11.6-14.6)
[2019-03-02] MEDS: COLISTIMETHATE SODIUM 150MG/VIAL INH SCH ×2 (08:00→20:23)
[2019-03-02] MEDS: FAMOTIDINE 20MG/2ML VIAL IV SCH (09:25)
[2019-03-02] MEDS: LEVETIRACETAM 500 MG in SODIUM CHLORIDE 0.9% 100 ML IV SCH ×2 (09:25→21:12)
[2019-03-02] MEDS: FLUCONAZOLE 200 MG/100ML BAG 100 ML IV SCH (09:26)
[2019-03-02] MEDS: PHENYLEPHRINE 20 MG in DEXT 5% WATER 248 ML IV PRN ×4 (10:29→20:39)
[2019-03-02 11:42] LABS: INR 1.2; PROTHROMBIN TIME 12.1 sec (9.6-11.0)
[2019-03-02] MEDS: SODIUM CHLORIDE 3% FOR INH 4ML UD NEB INH SCH (12:30)
[2019-03-02 12:45] LABS: PLATELET ESTIMATE INCREASED
[2019-03-02] MEDS ORDERED: DIATR MEGLU/DIATRIZOATE SOLN 30ML PO SCH (13:00)
[2019-03-02] MEDS: QUETIAPINE FUMARATE 25MG TABLET NG SCH (21:12)
[2019-03-02] MEDS: TOTAL PARENTERAL NUTRITION 1,500 ML IV SCH (21:15)
[2019-03-02] MEDS ORDERED: PHENYLEPHRINE 80 MG in DEXT 5% WATER 492 ML IV PRN (22:00)
[2019-03-02] MEDS ORDERED: PHENYLEPHRINE 80 MG in DEXT 5% WATER 500 ML IV PRN (22:00)
[2019-03-03] VITALS (97 sets, daily range): BP systolic 58–158; BP diastolic 24–91
[2019-03-03] MEDS: BLOOD SUGAR DIAGNOSTIC STRIP TEST SCH ×5 (00:01→23:39)
[2019-03-03] MEDS: IPRATROPIUM BROMIDE (0.02%) 0.5MG/2.5ML NEB HHN SCH ×6 (00:11→19:43)
[2019-03-03] MEDS: ACETYLCYSTEINE 100MG/ML 10% VIAL 4ML INH SCH ×3 (00:12→16:20)
[2019-03-03] MEDS: MEROPENEM 1,000 MG in SODIUM CHLORIDE 0.9% 100 ML IV SCH ×2 (04:19→15:44)
[2019-03-03] MEDS: FENTANYL CITRATE/PF 500 MCG in SODIUM CHLORIDE 0.9% 40 ML IV PRN ×2 (04:33→10:20)
[2019-03-03] MEDS: PHENYLEPHRINE 80 MG in DEXT 5% WATER 492 ML IV PRN ×3 (04:54→16:54)
[2019-03-03] MEDS ORDERED: NOREPINEPHRINE 8 MG in DEXT 5% WATER 242 ML IV PRN (05:30)
[2019-03-03 05:59] LABS: HEMATOCRIT. 22.2 % (42.0-52.0); HEMOGLOBIN. 7.1 g/dL (14.0-18.0); MEAN CORPUSCULAR HEMOGLOBIN 27.6 pg (28.0-32.0); MEAN CORPUSCULAR VOLUME 85.9 fL (80.0-94.0); MEAN PLATELET VOLUME 8.5 fl (7.4-10.4); PLATELET 792 x1000/uL (130-400); RED BLOOD CELL COUNT 2.58 mill/uL (4.7-6.1); RED CELL DISTRIBUTION WIDTH 17.2 % (11.6-14.6)
[2019-03-03] MEDS: INSULIN LISPRO 100 UNITS/ML SUBCUT SCH ×5 (06:00→23:39)
[2019-03-03 06:17] LABS: PHOSPHORUS 4.6 mg/dL (2.5-4.9)
[2019-03-03] MEDS ORDERED: SODIUM BICARBONATE 8.4% 1 MEQ/ML 50ML SYR IV SCH (07:30)
[2019-03-03] MEDS ORDERED: DEXTROSE 50% WATER 50ML SYRINGE IV SCH (08:00)
[2019-03-03] MEDS ORDERED: INSULIN REGULAR (HUMULIN R) 300UNITS/3ML IV SCH (08:00)
[2019-03-03 08:27] LABS: BG BASE EXCESS -4.9 mmol/L (-2.0-2.0); BG CARBOXYHEMOGLOBIN 0.3 % (0.5-1.5); BG DEOXYHEMOGLOBIN 5.4 % (0.0-5.0); BG FRACTION INSPIRED OXYGEN 35; BG HCO3 ACT 21.1 mmol/L (22.0-26.0); BG METHEMOGLOBIN 0.1 % (0.0-1.5); BG OXYGEN SATURATION 94.6 % (92.0-98.5); BG OXYHEMOGLOBIN 94.2 % (94.0-97.0); BG PCO2 43.8 mmHg (35.0-45.0); BG PH 7.301 (7.350-7.450); BG PO2 80.8 mmHg (75.0-100.0); BG SAMPLE SITE RIGHT RADIAL; BG TIDAL VOLUME(mL) 500 mL; BG TOTAL HEMOGLOBIN 7.8 g/dL (12.0-18.0); BG VENT MODE VENT - A/C; BG VENT RATE 14 set
[2019-03-03] MEDS: LEVETIRACETAM 500 MG in SODIUM CHLORIDE 0.9% 100 ML IV SCH ×2 (09:04→20:50)
[2019-03-03] MEDS: FAMOTIDINE 20MG/2ML VIAL IV SCH (09:42)
[2019-03-03 09:46] LABS: PLATELET ESTIMATE MARKEDLY INCREASED
[2019-03-03] MEDS: COLISTIMETHATE SODIUM 150MG/VIAL INH SCH ×2 (09:57→21:38)
[2019-03-03] MEDS: FLUCONAZOLE 200 MG/100ML BAG 100 ML IV SCH (10:21)
[2019-03-03] MEDS: IPRATROPIUM/ALBUTEROL 0.5-3(2.5)MG/3ML NEB HHN PRN (12:48)
[2019-03-03] MEDS ORDERED: DIATR MEGLU/DIATRIZOATE SOLN 30ML PO SCH (13:00)
[2019-03-03] MEDS ORDERED: ALBUMIN HUMAN 25GM/500ML (5%) IV NR (14:00)
[2019-03-03] MEDS: SODIUM CHLORIDE 3% FOR INH 4ML UD NEB INH SCH (16:22)
[2019-03-03] MEDS: TOTAL PARENTERAL NUTRITION 1,500 ML IV SCH (20:51)
[2019-03-03] MEDS: QUETIAPINE FUMARATE 25MG TABLET NG SCH (20:51)
[2019-03-03] MEDS ORDERED: FENTANYL CITRATE/PF 1,000 MCG in SODIUM CHLORIDE 0.9% 80 ML IV PRN (22:30)
[2019-03-04] VITALS (103 sets, daily range): BP systolic 51–159; BP diastolic 27–95
[2019-03-04] MEDS: PHENYLEPHRINE 80 MG in DEXT 5% WATER 492 ML IV PRN ×4 (00:32→23:19)
[2019-03-04] MEDS: IPRATROPIUM BROMIDE (0.02%) 0.5MG/2.5ML NEB HHN SCH ×6 (00:42→20:18)
[2019-03-04] MEDS: MEROPENEM 1,000 MG in SODIUM CHLORIDE 0.9% 100 ML IV SCH ×2 (02:01→16:20)
[2019-03-04] MEDS: SODIUM CHLORIDE 3% FOR INH 4ML UD NEB INH SCH ×2 (04:17→08:56)
[2019-03-04] MEDS: INSULIN LISPRO 100 UNITS/ML SUBCUT SCH ×4 (05:10→23:54)
[2019-03-04] MEDS: BLOOD SUGAR DIAGNOSTIC STRIP TEST SCH ×4 (05:10→23:54)
[2019-03-04 05:41] LABS: PHOSPHORUS 5.1 mg/dL (2.5-4.9)
[2019-03-04 05:50] LABS: HEMATOCRIT. 21.3 % (42.0-52.0); HEMOGLOBIN. 7.3 g/dL (14.0-18.0); MEAN CORPUSCULAR HEMOGLOBIN 29.3 pg (28.0-32.0); MEAN CORPUSCULAR VOLUME 84.7 fL (80.0-94.0); MEAN PLATELET VOLUME 8.2 fl (7.4-10.4); PLATELET 741 x1000/uL (130-400); RED BLOOD CELL COUNT 2.51 mill/uL (4.7-6.1); RED CELL DISTRIBUTION WIDTH 16.9 % (11.6-14.6)
[2019-03-04 07:15] LABS: PLATELET ESTIMATE INCREASED
[2019-03-04] MEDS: FAMOTIDINE 20MG/2ML VIAL IV SCH (08:14)
[2019-03-04] MEDS: COLISTIMETHATE SODIUM 150MG/VIAL INH SCH (08:56)
[2019-03-04] MEDS: LEVETIRACETAM 500 MG in SODIUM CHLORIDE 0.9% 100 ML IV SCH ×2 (09:01→21:19)
[2019-03-04 09:03] LABS: BG BASE EXCESS -5.9 mmol/L (-2.0-2.0); BG CARBOXYHEMOGLOBIN 0.9 % (0.5-1.5); BG DEOXYHEMOGLOBIN 8.2 % (0.0-5.0); BG FRACTION INSPIRED OXYGEN 35; BG METHEMOGLOBIN 0.1 % (0.0-1.5); BG OXYGEN SATURATION 91.7 % (92.0-98.5); BG OXYHEMOGLOBIN 90.8 % (94.0-97.0); BG PCO2 49.2 mmHg (35.0-45.0); BG PH 7.249 (7.350-7.450); BG PO2 70.4 mmHg (75.0-100.0); BG SAMPLE SITE RIGHT RADIAL; BG TIDAL VOLUME(mL) 500 mL; BG VENT MODE VENT - A/C; BG VENT RATE 16 set
[2019-03-04] MEDS ORDERED: DIATR MEGLU/DIATRIZOATE SOLN 30ML PO NR (09:15)
[2019-03-04] MEDS: FUROSEMIDE 40MG/4ML VIAL IVP SCH (09:53)
[2019-03-04] MEDS: FLUCONAZOLE 200 MG/100ML BAG 100 ML IV SCH (09:53)
[2019-03-04] MEDS ORDERED: METRONIDAZOLE 500 MG PREMIX 100 ML IV SCH ×2 (10:00→12:00)
[2019-03-04] MEDS ORDERED: FENTANYL CITRATE/PF 1,000 MCG in SODIUM CHLORIDE 0.9% 80 ML IV PRN (14:45)
[2019-03-04] MEDS ORDERED: VANCOMYCIN 1500MG in DEXTROSE 5% WATER 250ML IV NR (18:00)
[2019-03-04] MEDS ORDERED: TOTAL PARENTERAL NUTRITION 1,500 ML IV SCH (21:00)
[2019-03-04] MEDS: QUETIAPINE FUMARATE 25MG TABLET NG SCH (21:00)
[2019-03-05] VITALS (66 sets, daily range): BP systolic 30–132; BP diastolic 16–81
[2019-03-05] MEDS: IPRATROPIUM BROMIDE (0.02%) 0.5MG/2.5ML NEB HHN SCH ×3 (00:54→08:50)
[2019-03-05] MEDS: MEROPENEM 1,000 MG in SODIUM CHLORIDE 0.9% 100 ML IV SCH (02:53)
[2019-03-05 05:15] LABS: HEMOGLOBIN. 8.6 g/dL (14.0-18.0); MEAN CORPUSCULAR HEMOGLOBIN 28.4 pg (28.0-32.0); MEAN CORPUSCULAR VOLUME 86.1 fL (80.0-94.0); MEAN PLATELET VOLUME 8.2 fl (7.4-10.4); PLATELET 750 x1000/uL (130-400); RED BLOOD CELL COUNT 3.02 mill/uL (4.7-6.1); RED CELL DISTRIBUTION WIDTH 16.7 % (11.6-14.6)
[2019-03-05] MEDS: INSULIN LISPRO 100 UNITS/ML SUBCUT SCH (06:00)
[2019-03-05] MEDS: BLOOD SUGAR DIAGNOSTIC STRIP TEST SCH (06:00)
[2019-03-05 07:41] LABS: BG BASE EXCESS -4.1 mmol/L (-2.0-2.0); BG CARBOXYHEMOGLOBIN 0.4 % (0.5-1.5); BG DEOXYHEMOGLOBIN 6.7 % (0.0-5.0); BG HCO3 ACT 21.3 mmol/L (22.0-26.0); BG METHEMOGLOBIN 0.2 % (0.0-1.5); BG OXYGEN SATURATION 93.3 % (92.0-98.5); BG OXYHEMOGLOBIN 92.7 % (94.0-97.0); BG PCO2 40.3 mmHg (35.0-45.0); BG PH 7.341 (7.350-7.450); BG PO2 71.2 mmHg (75.0-100.0); BG SAMPLE SITE RIGHT RADIAL; BG TIDAL VOLUME(mL) 500 mL; BG TOTAL HEMOGLOBIN 8.6 g/dL (12.0-18.0); BG VENT MODE VENT - A/C; BG VENT RATE 20 set
[2019-03-05 07:52] LABS: PLATELET ESTIMATE MARKEDLY INCREASED
[2019-03-05] MEDS: FAMOTIDINE 20MG/2ML VIAL IV SCH (08:36)
[2019-03-05] MEDS: FUROSEMIDE 40MG/4ML VIAL IVP SCH (08:36)
[2019-03-05] MEDS: LEVETIRACETAM 500 MG in SODIUM CHLORIDE 0.9% 100 ML IV SCH (08:36)
[2019-03-05] MEDS: PHENYLEPHRINE 80 MG in DEXT 5% WATER 492 ML IV PRN (08:38)
[2019-03-05] MEDS: COLISTIMETHATE SODIUM 150MG/VIAL INH SCH (08:50)
[2019-03-05] MEDS ORDERED: FENTANYL CITRATE/PF 1,000 MCG in SODIUM CHLORIDE 0.9% 80 ML IV PRN (10:30)
[2019-03-05] MEDS: LORAZEPAM 2MG/ML CPJ IV PRN ×2 (10:58→13:09)
[2019-03-05] MEDS ORDERED: TOTAL PARENTERAL NUTRITION 1,500 ML IV SCH (21:00)
[2019-03-06] MEDS ORDERED: VANCOMYCIN 1 G PREMIX 200 ML IV SCH (06:00)
== END 2019-03-05 16:03 | disposition expired | DRG 720 ==
LOC: ER 08:30 → 5EST 10:44 → EDBEDREQSVC 10:47 → EDBEDREQ 10:47 → SUPCPDRO 12:10 → ENRESERV 14:14 → MICUSO 02-23 16:06
PROVIDERS: ADMIT Internal Medicine Nephrology; ATTEND Internal Medicine Nephrology
PROC: 5A09357 Assistance with Respiratory Ventilation, Less than 24 Consecutive Hours, Continuous Positive Airway Pressure (ICD-10-PCS; 2019-02-18)
PROC: 05HY33Z Insertion of Infusion Device into Upper Vein, Percutaneous Approach (ICD-10-PCS; 2019-02-19)
PROC: B54MZZA Ultrasonography of Right Upper Extremity Veins, Guidance (ICD-10-PCS; 2019-02-19)
PROC: 5A09357 Assistance with Respiratory Ventilation, Less than 24 Consecutive Hours, Continuous Positive Airway Pressure (ICD-10-PCS; 2019-02-20)
PROC: 5A09357 Assistance with Respiratory Ventilation, Less than 24 Consecutive Hours, Continuous Positive Airway Pressure (ICD-10-PCS; 2019-02-21)
PROC: 5A09357 Assistance with Respiratory Ventilation, Less than 24 Consecutive Hours, Continuous Positive Airway Pressure (ICD-10-PCS; 2019-02-22)
PROC: 5A1955Z Respiratory Ventilation, Greater than 96 Consecutive Hours (ICD-10-PCS; principal; 2019-02-23)
PROC: 0BH18EZ Insertion of Endotracheal Airway into Trachea, Via Natural or Artificial Opening Endoscopic (ICD-10-PCS; 2019-02-23)
PROC: 30233N1 Transfusion of Nonautologous Red Blood Cells into Peripheral Vein, Percutaneous Approach (ICD-10-PCS; 2019-03-03)
PROC: 0T2BX0Z Change Drainage Device in Bladder, External Approach (ICD-10-PCS; 2019-03-04)
DX: A41.9 Sepsis, unspecified organism (principal); J96.01 Acute respiratory failure with hypoxia; N17.0 Acute kidney failure with tubular necrosis; R65.21 Severe sepsis with septic shock; E43 Unspecified severe protein-calorie malnutrition; K31.6 Fistula of stomach and duodenum; G92 Toxic encephalopathy; J18.1 Lobar pneumonia, unspecified organism; J43.9 Emphysema, unspecified; I12.0 Hypertensive chronic kidney disease with stage 5 chronic kidney disease or end stage renal disease; J47.0 Bronchiectasis with acute lower respiratory infection; K94.22 Gastrostomy infection; B37.49 Other urogenital candidiasis; E87.1 Hypo-osmolality and hyponatremia; D63.8 Anemia in other chronic diseases classified elsewhere; E83.39 Other disorders of phosphorus metabolism; E78.1 Pure hyperglyceridemia; E86.0 Dehydration; E87.2 Acidosis; E87.5 Hyperkalemia; G40.909 Epilepsy, unspecified, not intractable, without status epilepticus; N18.5 Chronic kidney disease, stage 5; L03.311 Cellulitis of abdominal wall; S20.212A Contusion of left front wall of thorax, initial encounter; X58.XXXA Exposure to other specified factors, initial encounter; K80.20 Calculus of gallbladder without cholecystitis without obstruction; M81.0 Age-related osteoporosis without current pathological fracture; N28.1 Cyst of kidney, acquired; Y95 Nosocomial condition; Z51.5 Encounter for palliative care; Y83.8 Other surgical procedures as the cause of abnormal reaction of the patient, or of later complication, without mention of misadventure at the time of the procedure; Y92.89 Other specified places as the place of occurrence of the external cause; Z78.1 Physical restraint status; Z22.322 Carrier or suspected carrier of Methicillin resistant Staphylococcus aureus; Z68.26 Body mass index [BMI] 26.0-26.9, adult; Y93.9 Activity, unspecified; Y99.8 Other external cause status; Z66 Do not resuscitate; Z86.73 Personal history of transient ischemic attack (TIA), and cerebral infarction without residual deficits; I46.9 Cardiac arrest, cause unspecified; T83.030A Leakage of cystostomy catheter, initial encounter; Y73.8 Miscellaneous gastroenterology and urology devices associated with adverse incidents, not elsewhere classified
CPT/HCPCS: 31500; 36415; 36569; 36600; 71045; 71260; 74176; 74177; 76770; 76937; 80048; 80061; 80076; 80202; 82040; 82140; 82375; 82550; 82805; 82962; 83605; 83735; 83880; 84100; 84132; 84134; 84145; 84478; 84484; 86635; 86850; 86900; 86920; 87070; 87077; 87186; 87804; 93005; 93306; 93970; 93971; 94002; 94003; 94640; 94660; 94667; 96365; 96366; 96368; 96375; 97162; 97164; 99291; A6261; C1725; J0295; J0770; J0885; J1170; J1450; J1815; J1940; J1953; J2060; J2185; J2370; J2543; J2704; J2930; J3010; J3370; J3475; J3490; J7030; J7040; J7050; J7060; J7131; J7608; J7611; J7620; P9016; P9041; Q9963; Q9967; A4315